=== PATIENT | male | born 1970 | race African-American/Black ===

== ENCOUNTER 2021-08-28 01:37 | Inpatient (IN) | payer OTHER ==
[~2021-08-28] VITALS: Ht 185.4 cm; Wt 90.7 kg
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
[2021-08-28 01:39] VITALS: BP 108/62
[2021-08-28 02:14] LABS: BASOPHILS 1.5 % (0.0-2.0); EOSINOPHILS 0.9 % (0.0-3.0); HEMATOCRIT 43.7 % (42.0-52.0); HEMOGLOBIN 14.1 gm/dL (14.0-18.0); LYMPHOCYTES 31.8 % (24.0-44.0); MCH 28.9 pg (26.0-34.0); MCHC 32.2 g/dL (28.0-37.0); MCV 89.6 fL (80.0-100.0); MONOCYTES 9.3 % (1.0-8.0); PLATELET COUNT 312 thou/uL (150-400); POLYS 56.5 % (36.0-66.0); RBC 4.87 mil/uL (4.50-6.00); RDW 13.9 % (10.5-14.5); WBC 8.8 thou/uL (4.0-11.0)
[2021-08-28 02:25] LABS: ANION GAP 27 mmol/L (7-16); BUN 19 mg/dL (7-18); CALCIUM 8.8 mg/dL (8.5-10.1); CHLORIDE 100 mmol/L (98-107); CO2 15 mmol/L (21-32); CREATININE 1.3 mg/dL (0.7-1.3); GLUCOSE 147 mg/dL (74-106); POTASSIUM 4.2 mmol/L (3.5-5.1); SODIUM 142 mmol/L (136-145)
[2021-08-28 02:31] LABS: ALBUMIN 4.1 g/dL (3.4-5.0); DIRECT BILIRUBIN < 0.1 mg/dL (<0.1-0.2); SGOT 38 U/L (15-37); SGPT 35 U/L (30-65); TOTAL BILIRUBIN 0.4 mg/dL (0.2-1.0)
[2021-08-28 02:34] LABS: AMP/METHAMP Negative (Negative); BARBITURATES Negative (Negative); BENZODIAZEPINES Negative (Negative); COCAINE Negative (Negative); METHADONE Negative (Negative); OPIATES Negative (Negative); PCP Negative (Negative)
--- NOTE | 2021-08-28 10:26 | EKG ---
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
[2021-08-28 15:33] VITALS: BP 128/78
[2021-08-28 15:55] VITALS: BP 112/72
[2021-08-28 16:22] VITALS: BP 131/79
--- NOTE | 2021-08-28 16:46 | NUR ---
ASSUMED PT CARE UPON ADMISSION TO UNIT AROUND 1622. PATIENT IS A&OX4, ABLE TO MAKE NEEDS KNOWN. PATIENT EDUCATED ON SEIZURE PRECAUTIONS, REFUSING BED ALARM. INSTRUCTED TO CALL WHEN NEEDED. PATIENT SIDE RAILS ARE PADDED. PATIENT DENIES ANY PAIN, NUMBNESS, OR TINGLING, STATING HE DOESNT KNOW WHY HE IS HAVING TO STAY OVERNIGHT FOR A TEST TO BE DONE TOMORROW. PATIENT ON ROOM AIR.
[2021-08-28 21:45] VITALS: BP 110/66
--- NOTE | 2021-08-28 22:57 | NUR ---
ASSUMED CARE OF PT AT 1915. PT IS A&OX4. IS ON ROOM AIR. DENIES PAIN. REMAINS ON SEIZURE PRECAUTIONS. PADDING ON ALL RAILS. PT IS STABLE. IS ABLE TO REPOSITION SELF IN BED. IS UP WITH VALERIO CEVALLOS. FALL PRECUTIONS & HOURLY ROUNDING CONTINUED THIS SHIFT. PT HAS VOICED SEVERAL TIMES, "I DON'T WANT TO BE HERE. I GOT THINGS TO DO. THEY GOT ME IN HERE BECAUSE THEY LISTENED TO SOMEONE ELSE". THIS NURSE USED THERAPUETIC COMMUNICATION WITH PT. PT AGREED TO STAY THROUGH THE NIGHT. LABS & VITALS REVIEWED. CALL LIGHT WITHIN REACH. WILL CONTINUE TO MONITOR.
--- NOTE | 2021-08-29 00:12 | NUR ---
THE PLUMBING MECHANIC REPORTED THAT PT HAD GOTTEN FULLY DRESSED & WAS HEARD SPEAKING ON THE PHONE TO SOMEONE ASKING FOR A RIDE FROM THE HOSPITAL. THE PLUMBING MECHANIC REPORTED THIS TO THIS NURSE. THIS NURSE SPOKE TO PT REGARDING SITUATION. THE PT REPORTED THAT HE IS NOT GOING TO LEAVE TONIGHT. HIS RIDE TALKED HIM INTO STAYING. VP INFORMATION TECHNOLOGY PHOTO CHECKER WAS CONTACTED. VP INFORMATION TECHNOLOGY STATED, "PT HAS THE RIGHT TO LEAVE AMA. HOWEVER, HE IS NOT ALLOWED TO DRIVE FOR 6 MONTHS." THEAPUETIC COMMUNICATION & EDUCATION WAS PROVIDED TO THE PT. HOUSE SUP & SECURITY WAS ALERTED. THE PT IS CURRENTLY IN ROOM ASLEEP. CALL LIGHT IS WITHIN REACH. PT IS NOT FAR FROM NURSE STATION. HOURLY ROUNDING CONTINUED THIS SHIFT.
[2021-08-29 07:56] VITALS: BP 112/77
[2021-08-29] MEDS ORDERED: KEPPRA XR500 MG PO (09:51)
[2021-08-29 12:26] VITALS: BP 112/77
--- NOTE | 2021-08-29 12:43 | NUR ---
ASSUMED PT CARE THIS AM. PT A&OX4, ABLE TO MAKE NEEDS KNOWN. PATIENT REPORTING NO PAIN, NUMBNESS, OR TINGLING. IV REMAINS PATENT, SALINE LOCKED. PATIENT HAD MRI THIS SHIFT. SIDE RAILS ARE PADDED, BUT PATIENT REFUSING FALL PRECAUTIONS OTHERWISE. CALL LIGHT WITHIN REACH. PATIENT REPORTS UNDERSTANDING OF DISCHARGE TEACHING. PATIENT REQUESTED INFORMATION ABOUT NEUROLOGIST THAT SAW HIM WHILE HE WAS HERE, INFORMATION GIVEN TO PATIENT. PATIENT SENT WITH BELONGINGS AND PRESCRIPTION.
--- NOTE | 2021-08-30 18:01 | EEG ---
[facility] [place] [address] ELECTROENCEPHALOGRAM Name: GILBERT ASENCIO Efrem Room #: 454-P [facility] IN M.R.#: [id number] Admission: 08/28/21 Attend Phys: Nargis Cervantes MD Discharge: 08/29/21 Date of : 74 Report #: [id number] THIS REPORT FOR: //name// DATE OF SERVICE: 08/28/2021 The patient is being evaluated for the possibility of seizure. EEG was done by placing the electrode by standard 10-20 system of electrode placement. Both referential and sequential montages were used for recording. Background activity is about 11 Hz and 30 microvolts. The patient became drowsy and that is associated with bilateral slowing. Photic stimulation was unremarkable. Throughout the record, no active epileptiform activity was noticed. IMPRESSION: This patient's EEG is unremarkable. Thank you very much for this referral. <ELECTRONICALLY SIGNED> By: Adrian Wheeler MD 08/30/21 1801 [id number] [id number] Adrian Wheeler MD /nt
== END 2021-08-29 13:35 | disposition home or self-care (01) | DRG 101 ==
LOC: ER 01:37 → EROBS 04:59 → 4W 16:05
PROVIDERS: Psychiatry & Neurology Neuromuscular Medicine; Student in an Organized Health Care Education/Training Program; ADMIT Internal Medicine; ATTEND Internal Medicine
DX: G40.89 Other seizures (principal); Z20.822 Contact with and (suspected) exposure to COVID-19; F19.10 Other psychoactive substance abuse, uncomplicated
CPT/HCPCS: 10040